=== PATIENT | female | born 1970 | race African-American/Black ===

== ENCOUNTER → 2022-09-01 14:13 | Outpatient (BNVA) | payer OTHER, SELFPAY | PROVIDERS: Visit Provider Physician Assistant Medical | DX: S63.501A Unspecified sprain of right wrist, initial encounter (principal); W18.30XA Fall on same level, unspecified, initial encounter | CPT/HCPCS: 29125; 73110; 99202 ==

== ENCOUNTER → 2022-09-07 10:48 | Outpatient (BNVA) | payer OTHER, SELFPAY | PROVIDERS: Visit Provider Physician Assistant Medical | DX: S63.501A Unspecified sprain of right wrist, initial encounter (principal); S63.601A Unspecified sprain of right thumb, initial encounter; X50.9XXA Other and unspecified overexertion or strenuous movements or postures, initial encounter | CPT/HCPCS: 29125; 99213 ==

== ENCOUNTER → 2022-09-14 09:52 | Outpatient (BNVA) | payer OTHER, SELFPAY | PROVIDERS: Visit Provider Physician Assistant Medical | DX: S63.501D Unspecified sprain of right wrist, subsequent encounter (principal); S63.601D Unspecified sprain of right thumb, subsequent encounter; W18.30XD Fall on same level, unspecified, subsequent encounter | CPT/HCPCS: 99202 ==

== ENCOUNTER → 2022-09-29 10:32 | Outpatient (BNVA) | payer OTHER, SELFPAY | PROVIDERS: Visit Provider Physician Assistant Medical | DX: S63.501D Unspecified sprain of right wrist, subsequent encounter (principal); W18.30XD Fall on same level, unspecified, subsequent encounter | CPT/HCPCS: 99213 ==

== ENCOUNTER → 2022-10-18 09:05 | Outpatient (BNVA) | payer OTHER, SELFPAY | PROVIDERS: Visit Provider Physician Assistant Medical | DX: S63.501D Unspecified sprain of right wrist, subsequent encounter (principal); W18.30XD Fall on same level, unspecified, subsequent encounter | CPT/HCPCS: 99213 ==

== ENCOUNTER → 2022-11-03 15:43 | Outpatient (BNVA) | payer OTHER, SELFPAY | PROVIDERS: Visit Provider Physician Assistant Medical | DX: S63.501D Unspecified sprain of right wrist, subsequent encounter (principal); W18.30XD Fall on same level, unspecified, subsequent encounter | CPT/HCPCS: 99213 ==

== ENCOUNTER 2022-11-09 15:00 | Outpatient (RCR) | payer OTHER, BC, SELFPAY ==
--- NOTE | 2022-10-15 15:10 | MHC.OT.EP ---
[address] [phone] Occupational Therapy Plan of Care Patient Name: Ivana Veronica Date of Evaluation: 10/15/22 Diagnosis: Left Thumb Sprain Pain Location: Mild pain in right thumb at rest Increases to 6-7/10 w/ use Pain Score: 5 Pain Scale Used: Numeric (0 - 10) Aggravating Factors: Lifting, gripping, opening containers Alleviating Factors: Relief w/ pre-tristan forearm based thumb spica from WC (wears at work) Ice occasionally Assessment: 52 yo female presents w/ right hand/wrist pain about six weeks after traumatic injury/strain while at work. She was referred to [facility] and x-ray completing, showing edema but no acute fracture. 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 On assessment, she has no significant edema or impaired sensation, thumb range and wrist range is only slightly impaired with tightness at end range. She continues to report moderate pain, worsening w/ everyday use. I anticipate she will do well w/ brief course of OT. Frequency and Duration: The patient will be seen 2x/wk for 3 weeks Short Term Goals: Ind w/ HEP Ind w/ use of heat and ice appropriately at home Good follow through w/ joint protection Pt to report ease w/ hand writing tasks Right gross grasp 40lb Group Home Goals: same as above Treatment Plan: Therapeutic Exercise Therapeutic Activity Home Exercise Program Splinting Patient Education Edema Control ADL Training Ultrasound Paraffin Fluidotherapy MHP Cold Packs Joint Mobilization Soft Tissue Mobilization Kinesiotaping Electronically Signed By: Lyssa Mclaughlin OTR/L CHT Please Sign and return to therapist. Thank you once again for your referral.
--- NOTE | 2022-11-09 15:24 | MHC.OT.DC ---
[address] [phone] F: [phone] Occupational Therapy Discharge Note Patient Name: Ivana Veronica Provider: Nga Marks PA-C Diagnosis: Right Thumb Sprain Date of Evaluation: 10/15/22 Date of Discharge: 11/09/22 Treatments to Date: 5 Cancellations to Date: 2 Discharge Status: Achieved Goals Improved Function Independent with HEP Discharge Summary: Ivana was referred to OT w/ right thumb strain at work. She has done very well and now presents w/ good strength, range and overall functional use of right hand without pain in thumb. All therapy goals met and pt scheduled to return to work November 22. Electronically Signed By: Lyssa Mclaughlin OTR/L CHT Reviewed/agree with student documentation: Therapist: Please Sign and return to therapist, thank you for your referral.
== END 2022-11-09 15:24 | disposition home or self-care (01) ==
LOC: HO.OT 15:00
PROVIDERS: Visit Provider Physician Assistant Medical
DX: S63.602D Unspecified sprain of left thumb, subsequent encounter (principal)
CPT/HCPCS: 97110; 97165

== ENCOUNTER → 2022-12-06 11:21 | Outpatient (BNVA) | payer OTHER, SELFPAY | PROVIDERS: Visit Provider Physician Assistant Medical | DX: S63.501D Unspecified sprain of right wrist, subsequent encounter (principal); S63.601D Unspecified sprain of right thumb, subsequent encounter; W18.30XD Fall on same level, unspecified, subsequent encounter | CPT/HCPCS: 99213 ==